=== PATIENT | male | born 1985 | race Caucasian/White ===

== ENCOUNTER 2016-08-10 20:57 | Emergency (ER) | payer BC ==
[2016-08-10] MEDS ORDERED: ED DILTIAZEM DRIP 125 ML IV ONE (21:51)
[2016-08-10] MEDS ORDERED: SODIUM CHLORIDE 0.9% 1,000 ML ONE (21:52)
[2016-08-10] MEDS ORDERED: DILTIAZEM 50 MG/10 ML VIAL IV ONE (21:52)
[2016-08-11] MEDS ORDERED: DILAUDID 1 MG/ML AMP ONE (01:32)
[2016-08-11] MEDS ORDERED: PROPOFOL 50 ML IV ONE (01:33)
== END 2016-08-11 02:58 | disposition home or self-care (01) ==
LOC: ER 20:57
DX: I48.0 Paroxysmal atrial fibrillation (principal)
CPT/HCPCS: 36415; 71010; 80053; 82550; 82553; 84484; 85025; 85610; 85730; 93005; 96365; 96366; 96375